=== PATIENT | male | born 1990 | race Caucasian/White ===

== ENCOUNTER 2018-06-18 16:21 | Emergency (ER) | payer MEDICAID, OTHER ==
[~2018-06-18] VITALS: Ht 182.9 cm; Wt 72.0 kg
[2018-06-18 16:57] VITALS: BP 114/51
[2018-06-18] MEDS ORDERED: IBUP-1985 PO (17:44)
== END 2018-06-18 17:54 | disposition home or self-care (01) ==
LOC: ER 16:22
DX: R07.81 Pleurodynia (principal); Z79.899 Other long term (current) drug therapy; V00.131A Fall from skateboard, initial encounter; Y93.51 Activity, roller skating (inline) and skateboarding; Y92.89 Other specified places as the place of occurrence of the external cause; Y99.8 Other external cause status
CPT/HCPCS: 71101; 99283